=== PATIENT | male | born 1970 | race Caucasian/White ===

== ENCOUNTER 2017-06-03 19:11 | Emergency (ER) | payer OTHER ==
[~2017-06-03] VITALS: Ht 195.6 cm; Wt 91.0 kg
[~2017-06-03 19:11] MED LIST: IBUP-1542 PO; NAPR-688 PO
[2017-06-03 19:22] VITALS: Ht 195.6 cm; Wt 91.0 kg
[2017-06-03] MEDS ORDERED: IBUPROFEN 600 MG TAB PO ONE (21:00)
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
--- NOTE | 2017-06-03 21:38 | RADRPT ---
PROCEDURE: XR Femur. CLINICAL INDICATION: Left leg pain. TECHNIQUE: AP and lateral views of the left femur were performed. COMPARISON: No prior studies are available for comparison. FINDINGS: There has been open reduction and internal fixation with a screw in the neck of the femur and a jarrod in the proximal shaft of the femur with a locking screw distally. Alignment is satisfactory and ther e is solid bony union. There is no new fracture and there is no dislocation. The remainder of the le ft femur is normal. The soft tissues are normal. Articular surfaces are intact. There is no lytic or blastic lesion. IMPRESSION: 1. Satisfactory postoperative appearance of the left hip. 2. No acute abnormality. 3. Otherwise unremarkable images of the left femur. RPTAT: QQ .José Miguel Mendosa MD, Date Time Electronically viewed and signed by .José Miguel Mendosa MD, on 06/03/2017 21:38 .R/
--- NOTE | 2017-06-03 21:41 | RADRPT ---
PROCEDURE: XR Left Shoulder. CLINICAL INDICATION: Left shoulder pain. TECHNIQUE: Three views. Frontal internal rotation, frontal external rotation, and scapular Y-view . COMPARISON: 12/29/2015. FINDINGS: There is no fracture or dislocation. The soft tissues are normal. There are degenerative changes with osteophytes noted. There is cephalad displacement of the humeral head which may indicate chronic rotator cuff tear. There is no lytic or blastic lesion. There is no radiopaque foreign body. IMPRESSION: 1. Degenerative changes with osteophytes noted. 2. Possible chronic rotator cuff tear. 3. No acute abnormality. RPTAT: QQ .José Miguel Mendosa MD, MD Date Time Electronically viewed and signed by .José Miguel Mendosa MD, on 06/03/2017 21:40 .R/
[2017-06-03] MEDS ORDERED: IBUP-1542 PO (21:57)
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
[2017-06-03] MEDS ORDERED: WALK1EAC23 MC (22:19)
== END 2017-06-03 22:58 | disposition home or self-care (01) ==
LOC: FTE 19:11
DX: S49.92XA Unspecified injury of left shoulder and upper arm, initial encounter (principal); W20.8XXA Other cause of strike by thrown, projected or falling object, initial encounter; Y92.9 Unspecified place or not applicable
CPT/HCPCS: 73030; 73510; 73550; 73562

== ENCOUNTER 2017-06-04 09:48 | Emergency (ER) | payer OTHER ==
[~2017-06-04] VITALS: Ht 157.5 cm; Wt 89.0 kg
[~2017-06-04 09:48] MED LIST changes: +WALK1EAC23 MC
[2017-06-04 09:51] VITALS: Ht 157.5 cm; Wt 89.0 kg
[2017-06-04] MEDS ORDERED: KETOROLAC 30 MG INJ IM STA (10:21)
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
== END 2017-06-04 10:35 | disposition home or self-care (01) ==
LOC: FTE 09:48
DX: M79.605 Pain in left leg (principal)
CPT/HCPCS: 96372; 99284; J1885

== ENCOUNTER → 2018-01-04 | Outpatient (CLI) | END | disposition home or self-care (01) ==

== ENCOUNTER → 2018-02-22 | Outpatient (CLI) | END | disposition home or self-care (01) ==